=== PATIENT | male | born 2000 | race African-American/Black ===

== ENCOUNTER 2025-02-13 20:37 | Emergency (ER) | payer OTHER ==
[~2025-02-13] VITALS: Ht 182.9 cm; Wt 76.4 kg
[2025-02-13] MEDS: IBUPROFEN 400 MG TABLET PO ONE (22:29)
[2025-02-13 22:42] LABS: APPEARANCE,URINE HAZY (CLEAR); GLUCOSE, URINE (UA) NEGATIVE (NEGATIVE); LEUKOCYTE ESTERASE ,URINE MODERATE (NEGATIVE); NITRATE,URINE NEGATIVE (NEGATIVE); OCCULT BLOOD,URINE NEGATIVE (NEGATIVE); SPECIFIC GRAVITIY, URINE 1.032 (1.003-1.030)
[2025-02-13 22:51] LABS: SQUAMOUS EPITHELIAL CELL,UR Few /LPF (None Seen)
[2025-02-13] MEDS ORDERED: PENICILLIN G BENZATHINE LA 2,400,000 UNITS/4 ML SYRINGE IM ONE (23:00)
[2025-02-13] MEDS: PENICILLIN G BENZATHINE LA 1,200,000 UNITS/2 ML SYRINGE IM ONE (23:38)
[2025-02-14 00:01] VITALS: BP 127/77; PULSE 78; RESP 18; TEMP 97.7; O2SAT 100
== END 2025-02-14 00:08 | disposition home or self-care (01) ==
LOC: EMS 20:37
DX: N48.5 Ulcer of penis (principal); L98.499 Non-pressure chronic ulcer of skin of other sites with unspecified severity; J45.909 Unspecified asthma, uncomplicated; F32.A Depression, unspecified; F17.210 Nicotine dependence, cigarettes, uncomplicated; F12.90 Cannabis use, unspecified, uncomplicated
CPT/HCPCS: 99283; 81001; 87086; 96372; J0561